=== PATIENT | male | born 1940 | race Caucasian/White ===

== ENCOUNTER → 2023-03-04 | Outpatient (CLI) | payer OTHER, SELFPAY ==
--- NOTE | 2023-03-04 10:37 | STRESSREP_ITS ---
Stress Test Report Date: 03/04/2023 Procedure: Pharmacologic stress nuclear imaging study Indications: Coronary artery disease Consent: Per the patient Procedure: The patient underwent pharmacologic (Regadenoson 0.4mg ) evaluation with a peak heart rate of 90 beats per minute (64%predicted maximal heart rate) and a peak blood pressure of 140/72 mmHg. The baseline ECG demonstrated sinus rhythm with right bundle branch block. The peak pharmacologic ECG demonstrated no diagnostic changes. Rare PVCs noted. [There was no complaint of chest discomfort during pharmacologic infusion or recovery]. The patient was injected with 11.0 millicuries of technetium 99m Cardiolite and subsequently rest SPECT Cardiolite nuclear imaging was obtained in the horizontal long, vertical long, and short axis views. The patient underwent pharmacologic (Regadenoson) evaluation. The patient was injected with 33.0 millicuries of technetium 99m Cardiolite and subsequently stress SPECT Cardiolite nuclear imaging was obtained in the horizontal long, vertical long, and short axis views. A gated Cardiolite study at peak stress was obtained. The examination was stopped secondary to completion of protocol. Rest and stress SPECT Cardiolite nuclear imaging status post realignment, normalization, and attenuation correction demonstrate a mild fixed perfusion defect of the apex suggestive of previous nontransmural infarct versus apical thinning. The apex is mildly hypokinetic. [The gated Cardiolite study demonstrates myocardial thickening and inward wall motion]. The reported LVEF is 60%. Impression: 1. Pharmacologic (Regadenoson) evaluation 2. Peak pharmacologic ECG with no diagnostic changes. 3. Rare PVCs noted. 5. 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 No reversible ischemia noted. 6. The gated Cardiolite study reports an LVEF of 60%. This note was generated with [employer] software. It may contain incorrect words, spelling, and punctuation that were not noted in checking the note before signing.
== END | disposition home or self-care (01) ==
PROVIDERS: PCP Family Medicine
DX: R06.00 Dyspnea, unspecified (principal); R53.83 Other fatigue
CPT/HCPCS: 78452; 93017; A9500; A4216; J2785

== ENCOUNTER → 2023-12-11 | Outpatient (CLI) | payer MEDICARE, SELFPAY ==
--- NOTE | 2023-12-11 11:55 | LES_PTH ---
PATIENT: SONIA CORNEJO V LOC: [facility] U#:[id number] AGE/SX: 83/M ROOM: RE12/11/[address]: Dr. Zenon Gotti MD : 1940 BED: DIS: 12/11/2023 SPEC #: [id number] RECD: 12/11/23 15:00 STATUS: NORMA HERRERAJi #: [id number] MELODY: 12/11/23 11:[address]: Zenon Gotti DEPT: SURGICAL PATHOLOGY RECD BY: Antonia Pritchard ENTERED: 12/12/23 07:03 SP TYPE: Lesion OTHR DR: Dr. Fabian Rae, DO Tissues: Skin of eyelid, NOS Procedures: Surgery Specimen Level IV HEADER OPERATION: Lesion removal right lower lid PRE-OP DIAGNOSIS: Right lower lid TISSUE SUBMITTED: Right lower lid MICROSCOPIC DIAGNOSIS Lesion of right lower eyelid, biopsy: Basal cell carcinoma, narrowly excised. AM/mr 12/13/2023 COMMENT Case has been reviewed in consultation with Dr. Damian who concurs with the above diagnosis. IDC:[id number] MICROSCOPIC DESCRIPTION Slides are reviewed. GROSS DESCRIPTION Received in fixative is one container labeled with the patient's name and designated Right lower lid. The specimen consists of a piece of quinn-white skin measuring 0.4 x 0.4 x 0.2cm. The specimen is inked and submitted entirely in one cassette. JUANPABLO/ 12/12/2023 TC:0 CPT:44830
== END | disposition home or self-care (01) ==
PROVIDERS: PCP Family Medicine; Referring Provider Ophthalmology; Visit Provider Ophthalmology
DX: C44.1122 Basal cell carcinoma of skin of right lower eyelid, including canthus (principal)
CPT/HCPCS: 88305